=== PATIENT | male | born 1960 | race Caucasian/White ===

== ENCOUNTER 2020-09-16 09:56 | Emergency (ER) | payer BC, SELFPAY ==
--- NOTE | 2020-09-16 09:59 | ED.GENADULT ---
HPI - General Adult General Chief complaint: Upper Respiratory Infection Stated complaint: sinus infection Time Seen by Provider: 09/16/20 09:59 Source: patient Mode of arrival: ambulatory Limitations: no limitations History of Present Illness HPI narrative: 59-year-old male patient presents to the [facility] with complaints of cold symptoms for the past 4 days. Patient states he has had a lot of congestion and a runny nose of the right side of his nose. Patient states he has had a slight sore throat and coughing in the morning. Patient does present with a fever today but denies fevers at home. Patient states he has been feeling more fatigued and tired and has been sleeping a lot more lately. Denies having Covid within the last 3 months. Denies being around anybody with Covid that he is aware of denies getting the Covid vaccine. Patient denies getting the flu vaccine this year. Denies chest pain or shortness of breath. Related Data Home Medications Medication Instructions Recorded Confirmed No Home Medications 09/16/20 09/16/20 Allergies Allergy/AdvReac Type Severity Reaction Status Date / Time No Known Allergies Allergy Verified 04/12/15 11:06 Review of Systems Review of Systems: Narrative: CONSTITUTIONAL: Positive fever, denies chills, or sweats. EYES: Denies visual changes, redness, or discharge. ENT: Positive rhinorrhea, congestion, sore throat, denies otalgia. CARDIOVASCULAR: Denies chest pain, palpitations, or edema. RESPIRATORY: Positive mild nonproductive cough, denies dyspnea. GASTROINTESTINAL: Denies abdominal pain, nausea, vomiting, or diarrhea. GENITOURINARY: Denies dysuria or hematuria. SKIN: Denies rash or itching. MUSCULOSKELETAL: Denies back pain, joint pain, or myalgia. NEUROLOGIC: Denies headache, numbness, or weakness. Positive fatigue PSYCHIATRIC: Denies anxiety or depression. [facility] Surgical History Surgical History (Updated 09/16/20 @ 10:00 by YANET Foss) H/O skin graft H/O thyroidectomy History of appendectomy Family History Family History Father Family history of diabetes mellitus in first degree relative Family history of coronary artery disease Other Family history of lung cancer Social History Social History (Reviewed 03/31/21 @ 09:59 by BRITT Foss Smoking status: Never smoker Alcohol intake: current Gender identity (if verbalized by the patient): Male Comments At the time of my signature I agree with nursing past medical history, surgical, social, and family history. There is no relevant family history pertinent to the presenting complaint. Exam Narrative: Exam Narrative: GENERAL: Well-appearing, well-nourished, and in no acute distress. HEAD: Normocephalic, atraumatic. EYES: PERRLA and EOMI. ENT: Nares with erythema edema noted bilaterally, no rhinorrhea or epistaxis. Mucous membranes moist. Posterior pharynx with no erythema, tonsillar erythema, exudates or lesions present. Bilateral TMs are clear no erythema or foreign bodies to the canal. NECK: Supple. No lymphadenopathy CHEST: Clear to auscultation. No respiratory distress. Patient able talk in clear complete sentences. No obvious distress noted at this time. HEART: Regular rate and rhythm. No murmur heard. Normal peripheral pulses. ABDOMEN: Soft, nontender, nondistended, normal active bowel sounds. EXTREMITIES: Normal range of motion. No edema. SKIN: Warm, dry, no rash. NEURO: No focal deficits. Alert and oriented x3. Course Reevaluation(s) Reevaluation #1: Reevaluated patient notified him that his rapid Covid test today is positive. His strep test is negative. Discussed with patient that he will need to quarantine for 10 days from onset of symptoms so he definitely has at least 6 more days however the health department should be in contact with him to determine specifically when his quarantine will in. Discussed with him t
[2020-09-16 10:11] VITALS: BP 146/86; PULSE 66; RESP 18; TEMP 38.1; O2SAT 94
== END 2020-09-16 10:26 | disposition home or self-care (01) ==
PROVIDERS: Emergency Provider Nurse Practitioner Family; PCP Family Medicine
DX: U07.1 COVID-19 (principal)
CPT/HCPCS: 87081; 87426; 87880; 99213; C9803; G0463

== ENCOUNTER 2022-10-09 07:49 | Outpatient (CLI) | payer BC, SELFPAY ==
--- NOTE | 2022-10-10 17:53 | WPDSLEEPSTUD ---
Sleep Study Date of Study: 10/09/22 Ordering Provider: Bolivar Blanco MD Interpreting Physician: Sugar Owen DO Sleep Study Type: Split Polysomnogram Height: 1.88 m Weight: 113.398 kg Body Mass Index: 32.1 Neck Circumference (inches): 17 [place]: 4 Reason for Sleep Study Nocturnal hypoxemia, loud snoring, nocturnal gasping Sleep History The patient is a 61-year-old male with type 2 diabetes, hyperlipidemia, coronary artery disease, NSTEMI s/p stent x 2 , ischemic cardiomyopathy with EF 25-30%, excessive alcohol use, history of tobacco use and obesity that had a sleep study ordered by his primary care for evaluation of sleep apnea. The patient constantly awakens from sleep short of breath. He constantly awakens at night with heartburn, belching or cough. He constantly snores loudly enough that others complain. He constantly has trouble sleeping when he has a cold. He frequently wakes up gasping for air throughout the night. He frequently has breathing problems at night observed by himself or others. He denies sweating excessively at night. He denies having heart palpitations or irregular heartbeats during the night. He denies falling asleep during the day and denies falling asleep while driving. He denies sleep paralysis, cataplexy and hypnagogic / hypnopompic hallucinations. He denies having trouble at school or work due to sleepiness. He denies feeling afraidOf going to sleep. He denies having nightmares. He denies remembering his dreams. He denies having thoughts racing through his mind. He denies feeling sad, depressed or anxious. He denies having muscular tension. He denies noticing parts of his body jerk. He rarely kicks during the night. He denies having crawling and aching feelings in his legs and denies having leg pain during the night. He denies grinding his teeth during sleep and denies awakening with morning jaw pain. He denies being bothered by pain during the day and denies being awakened by pain during the night. He denies waking up feeling stiff in the morning. He denies waking up with sore or achy muscles. He denies waking up with pain in the neck, spine or other joints. He goes to bed at 9:00 p.m. on weekdays and 11:00 p.m. on the weekends. He is able to fall asleep in less than 5 minutes. He wakes up 2-3 times throughout the night for unknown reasons but is able to fall back asleep within a few minutes. He wakes up at 5:30 a.m. on weekdays and 8:00 a.m. on the weekends. He does not stay in bed after waking up in the morning. He currently lives with his . He does not consume any caffeinated beverages within 2 hours of bedtime. He does not engage in physical exercise before bedtime. He will watch television before falling asleep. He denies taking naps in the afternoon or the evening. He denies consuming any caffeinated beverages throughout the day. He drinks 5-6 alcoholic beverages per day. He quit smoking cigarettes 32 years ago. He denies recreational drug use. [facility] Past Medical History Medical History BMI 34.0-34.9,adult Dietary counseling and surveillance (07/12/18) Encounter for screening for lipoid disorders Encounter for screening for malignant neoplasm of prostate Hematuria, unspecified Mixed hyperlipidemia Rib pain on left side Surgical History Surgical History H/O skin graft H/O thyroidectomy History of appendectomy Family History Family History Father Family history of diabetes mellitus in first degree relative Family history of coronary artery disease Mother No problems noted. Sibling Alcohol abuse Other Family history of lung cancer Social History Social History Smoking status: Former
[2022-10-10 17:56] VITALS: BMI 32.1
== END 2022-10-10 06:03 | disposition home or self-care (01) ==
LOC: ANHCSM 07:52
PROVIDERS: PCP Family Medicine; Visit Provider Family Medicine
DX: G47.34 Idiopathic sleep related nonobstructive alveolar hypoventilation (principal); I42.9 Cardiomyopathy, unspecified; I21.4 Non-ST elevation (NSTEMI) myocardial infarction; G47.33 Obstructive sleep apnea (adult) (pediatric)
CPT/HCPCS: 95811

== ENCOUNTER 2024-12-24 11:16 | Outpatient (CLI) | payer BC, SELFPAY ==
--- OUTSIDE RECORDS SUMMARY | 2024-12-24 11:21 | XMS_ITS | Clinical Summary ---
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
--- OUTSIDE RECORDS SUMMARY | 2024-12-24 11:21 | XMS_ITS | Encounter Summary ---
Author Organization [facility] Address 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 NURSE Gender Identity Not on file Sexual Orientation Not on file documented as of this encounter Plan of Treatment Not on file documented as of this encounter Procedures Procedure Name Priority Date/Time Associated Diagnosis Comments CBC WITH DIFFERENTIAL Routine 07/16/2006 8:55 AM MDS NURSE CBC WITH DIFFERENTIAL Routine 07/16/2006 8:55 AM MDS NURSE COMPREHENSIVE METABOLIC PANEL Routine 07/16/2006 8:55 AM MDS NURSE ED HOLD Routine 07/15/2006 7:17 PM MDS NURSE documented in this encounter Results * (ABNORMAL) CBC WITH DIFFERENTIAL (07/16/2006 8:55 AM MDS NURSE) NEUTROPHILS 74(H) 45 - 70 % INTERFAC E SYSTEM LYMPHOCYTES 12(L) 16 - 45 % INTERFAC E SYSTEM MONOCYTES 11 3 - 13 % INTERFACE SYSTEM EOSINOPHILS 2 0 - 7 % INTERFAC E SYSTEM BASOPHILS 0 0 - 2 % INTERFACE SYSTEM NEUTROPHIL ABSOLUTE 5.97 1.90 - 7.00 K/uL INTERFACE SYSTEM LYMPHOCYTE ABSOLUTE 1.00 0.70 - 4.50 K/uL INTERFACE SYSTEM MONOCYTE ABSOLUTE 0.87 0.10 - 1.30 K/uL INTERFACE SYSTEM EOSINOPHIL ABSOLUTE 0.18 0.00 - 0.70 K/uL INTERFACE SYSTEM BASOPHILS ABSOLUTE 0.03 0.00 - 0.20 K/uL INTERFACE SYSTEM 07/16/2006 8:55 AM MDS NURSE us Luis Angel Fenton (Excluded Provider) Jordyn ROBLERO HEMATOLOGY ORDERABLES Edited Performing Organization Address [facility] de Phone Number INTERFACE SYSTEM Refer to clinic/hospital department * CBC WITH DIFFERENTIAL (07/16/2006 8:55 AM MDS NURSE) WBC 8.1 4.0 - 9.8 K/uL INTERFACE SYSTEM RBC 5.00 4.50 - 5.40 M/uL INTERFACE SYSTEM HEMOGLOBIN 14.7 13.6 - 16.5 g/dL INTERFACE SYSTEM HEMATOCRIT 42.7 40.0 - 48.0 % INTERFACE SYSTEM MCV 85.4 82.0 - 99.0 fL INTERFACE SYSTEM MCH 29.4 27.2 - 32.6 pg INTERFACE SYSTEM MCHC 34.4 31.5 - 35.5 % INTERFACE SYSTEM RDW 13.1 11.5 - 14.5 % INTERFACE SYSTEM RDW-STDEV 41.2 37.1 - 48.7 fL INTERFACE SYSTEM PLATELETS 258 140 - 350 K/uL INTERFACE SYSTEM MPV 9.7 9.3 - 12.4 fL INTERFACE SYSTEM 07/16/2006 8:55 AM MDS NURSE us Luis Angel Fenton (Excluded Provider) Jordyn ROBLERO HEMATOLOGY ORDERABLES Edited Performing Organization Address [facility] de Phone Number INTERFACE SYSTEM Refer to clinic/hospital department * (ABNORMAL) COMPREHENSIVE METABOLIC PANEL (07/16/2006 8:55 AM MDS NURSE) GLUCOSE 135(H) 65 - 99 mg/dL INTERFACE SYSTEM CREATININE 1.17 0.67 - 1.17 mg/dL INTERFACE SYSTEM CALCIUM 8.8 8.4 - 10.2 mg/dL INTERFACE SYSTEM ALKALINE PHOSPHATASE 68 40 - 129 U/L INTERFACE SYSTEM AST 26 12 - 38 U/L INTERFACE SYSTEM ALT 44(H) 0 - 41 U/L INTERFACE SYSTEM TOTAL PROTEIN 7.2 6.3 - 8.6 g/dL INTERFACE SYSTEM ALBUMIN 4.1 3.4 - 4.8 g/dL INTERFACE SYSTEM BILIRUBIN TOTAL 0.7 0.2 - 1.0 mg/dL INTERFACE SYSTEM BUN 15 6 - 20 mg/dL INTERFACE SYSTEM SODIUM 135 135 - 145 mmol/L INTERFACE SYSTEM POTASSIUM 3.6 3.5 - 4.9 mmol/L INTERFACE SYSTEM CHLORIDE 100 96 - 108 mmol/L INTERFACE SYSTEM CO2 25 22 - 30 mmol/L INTERFACE SYSTEM GFR, >60 >=60 mL/min/1. 7 sq meter INTERFACE SYSTEM GFR >60 >=60 mL/min/1. 7 sq meter INTERFACE SYSTEM Comment: Estimated GFR rate interpretative information for both Americans and non- Americans is available on the [facility] Intranet at: [email or web address] Select: Lab Policies and Procedures Select: Reference Ranges - GFR 07/16/2006 8:55 AM MDS NURSE us Luis Angel Fenton (Excluded Provider) Jordyn ROBLERO CHEMISTRY ORDERABLES Edited Performing Organization Address [facility] de Phone Number INTERFACE SYSTEM Refer to clinic/hospital department * ED HOLD (07/15/2006 7:17 PM MDS NURSE) SPECIMEN HOLD, BLOOD 7 days INTERFACE SYSTEM 07/15/2006 7:17 PM MDS NURSE Narrative INTERFACE SYSTEM - 07/15/2006 7:21 PM MDS NURSE Ordered by an unspecified provider. 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
--- OUTSIDE RECORDS SUMMARY | 2024-12-24 11:21 | XMS_ITS | Encounter Summary ---
Author Organization [facility] Address 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
--- OUTSIDE RECORDS SUMMARY | 2024-12-24 11:21 | XMS_ITS | Encounter Summary ---
Author Organization [facility] Address 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
--- OUTSIDE RECORDS SUMMARY | 2024-12-24 11:21 | XMS_ITS | Encounter Summary ---
Author Organization [facility] Address [address] [place] [address] Care Team Providers Care Molecular Biologist Name Role Phone Unavailable Primary Care Provider Unavailabl e Encounter Details Date Type Department Care Team (Late st Contact Info) Description 02/26/1999 Outpatient Historical [place] [id number] [address] Social History Tobacco Use Types Packs/Day Years Used Date Smoking Tobacco: Never Assessed Sex and Gender Information Value Date Recorded Sex Assigned at Not on file Legal Sex Male 5:20 AM TIMBER GRADER Gender Identity Not on file Sexual Orientation Not on file documented as of this encounter Plan of Treatment Not on file documented as of this encounter Visit Diagnoses Not on filedocumented in this encounter
--- OUTSIDE RECORDS SUMMARY | 2024-12-24 11:21 | XMS_ITS | Encounter Summary ---
Author Organization [facility] Address [address] [place] [address] Care Team Providers Care Marketing Graphics Specialist Name Role Phone Unavailable Primary Care Provider Unavailabl e Encounter Details Date Type Department Care Team (Late st Contact Info) Description 12/01/1998 Outpatient Historical [place] [id number] [address] Social History Tobacco Use Types Packs/Day Years Used Date Smoking Tobacco: Never Assessed Sex and Gender Information Value Date Recorded Sex Assigned at Not on file Legal Sex Male 5:20 AM FRUIT OR NUT FARMWORKER Gender Identity Not on file Sexual Orientation Not on file documented as of this encounter Plan of Treatment Not on file documented as of this encounter Visit Diagnoses Not on filedocumented in this encounter
--- OUTSIDE RECORDS SUMMARY | 2024-12-24 11:21 | XMS_ITS | Clinical Summary ---
Author Organization [facility] Address [address] [place] [address] Care Team Providers Care Voice Teacher Name Role Phone Bolivar Blanco MD Primary Care Provider [phone] Selwyn Henry MD Unavailable [phone] Source Comments [facility],non-owned Affiliates and Associated Physician Practices is amultiple site organization consisting of ambulatory clinics and hospital sitesin [place], [place], [place] and [place]. This disclosure is being madepursuant to the Care Everywhere program and may not contain all information available regarding this patient. Last updated 18.[facility] Allergies No known active allergies Medications * Be aware that medications may not be up to date on this document. Alwaysverify current medications with the patient. blood glucose (MIMI CONTOUR NEXT TEST) test stripIndication s:Diabetes Mellitus,monito r glucose levels Use 1 (one) strip as directed Reasons: Diabetes, monitor glucose levels 100 strip 08/10/2022 Active Jardiance 10 MG tabletIndicatio ns:Heart Failure,Type 2 Diabetes Mellitus Take 1 (one) tablet by mouth once daily Reasons: Cardiac Failure, Type 2 Diabetes 08/23/2022 Active Eliquis 5 MG tabletIndicatio ns:PAF (paroxysmal atrial fibrillation) (HCC) TAKE 1 TABLET BY MOUTH TWICE DAILY 180 tablet 3 03/28/2024 Active losartan (Cozaar) 50 MG tablet Take 0.5 (one-half) tablet by mouth once daily 45 tablet 3 09/21/2024 Active metoprolol succinate XL 24hr (Toprol XL) 25 MG tablet Take 1 (one) tablet by mouth once daily 90 tablet 3 09/20/2024 Active atorvastatin (Lipitor) 40 MG tablet TAKE 1 TABLET BY MOUTH AT BEDTIME 90 tablet 3 10/08/2024 Active Active Problems Patient Care Coordination No te Formatting of this note migh t be different from the original. 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 Shortness of breath 10/14/2022 Bradycardia 10/14/2022 Abnormal EKG 10/14/2022 Pacemaker 09/17/2022 Overview (03/28/2024): [facility] Coronary artery disease invo lving [place] [place] coronary artery of [place] heart without angina pectoris 08/31/2022 Type 2 diabetes mellitus wit hout complication, without long-term current use of insulin 08/31/2022 Dyslipidemia 08/31/2022 NSTEMI (non-ST elevated myocardial infarction) 0 08/07/2022 Chest pain, unspecified type 08/07/2022 History of placement of stent in LAD coronary ar k[place] 07/20/2022 Encounters Date Type Department Care Team Description 11/14/2024 11:30 AM CDT Clinical Support [facility] [address] [place] [address] Bradycardia ; Cardiac pacemaker in situ; CHB (complete heart block) (HCC) 10/06/2024 Refill [facility] [address] [place] [address] Anne Mora APRN-LINER INSERTER Refill Request from Last 3 Months Family History Medical History Relation Name Comments CAD (Coronary Artery Disease) Father Obesity Other Relation Name Status Comments Father Other Social History Tobacco Use Types Packs/Day Years Used Date Smoking Tobacco: Former Cigarettes 0.5 19 0 06/19/1978 - 06/19/1997 Passive Smoke Exposure: Past Smokeless Tobacco: Never Tobacco Cessation:Counseling Given: Not Answered Alcohol Use Standard Drinks/Week Comments Yes 20 (1 standard drink = 0.6 oz pu re alcohol) AUDIT-C Answer Date Recorded Q1: How often do you have a drink containing alc ohol? 2-3 times a week 08/08/2022 Q2: How many drinks containi ng alcohol do you have on a typical day when you are drinking? 1 or 2 08/08/2022 Q3: How often do you have si x or more drinks on one occasion? Less than monthly 08/08/2022 Overall Financial Resource Strain (CARDIA) Answe r Date Recorded How hard is it for you to pa y for the very basics like food, housing, medical care, and heating? Not hard at all 08/08/2022 [facility] - Occupational Stress Questionnaire Answer Date Recorded Do you feel stress - tense, restless, nervous, or anxious, or unable to sleep at night because your mind is troubled all the time - these days? Only a little 08/08/2022 Hunger Vital Sign Answer Date Recorded Within the past 12 months, y ou worried that your food would run out before you got the money to buy more. Never true 08/08/19 23 Within the past 12 months, t he food you bought just didn't last and you didn't have money to get more. Never true 08/08/2022 PRAPARE - Transportation Answer Date Re corded In the past 12 months, has l ack of transportation kept you from medical appointments or from getting medications? No 07/21 In the past 12 months, has l ack of transportation kept you from meetings, work, or from getting things needed for daily living? No 08/08/2022 Housing Stability Vital Sign Answer Francisco e Recorded In the last 12 months, was t here a time when you were not able to pay the mortgage or rent on time? No 08/08/2022 In the last 12 months, how many places have you lived? 1 08/08/2022 In the last 12 months, was t here a time when you did not have a steady place to sleep or slept in a assisted (including now)? No 08/08/2022 Sex and Gender Information Value Date Recorded Sex Assigned at Not on file Legal Sex Male 6:39 PM ACADEMIC AFFAIRS ASSISTANT Gender Identity Not on file Sexual Orientation Not on file Last Filed Vital Signs Vital Sign Reading Time Taken Comments Blood Pressure 138/84 07/26/2024 9:06 AM ACADEMIC AFFAIRS ASSISTANT Pulse 88 07/26/2024 9:06 AM ACADEMIC AFFAIRS ASSISTANT Temperature 37 C (98.6 F) 07/21/2023 8:43 AM ACADEMIC AFFAIRS ASSISTANT Respiratory Rate 20 10/15/2022 11:58 AM CDT Oxygen Saturation 94% 07/26/2024 9:06 AM ACADEMIC AFFAIRS ASSISTANT Inhaled Oxygen Concentration - - Weight 116.1 kg (256 lb) 07/26/2024 9:06 AM ACADEMIC AFFAIRS ASSISTANT Height 188 cm (6' 2) 07/26/2024 9:06 AM ACADEMIC AFFAIRS ASSISTANT Body Mass Index 32.87 07/26/2024 9:06 AM ACADEMIC AFFAIRS ASSISTANT Plan of Treatment Upcoming Encounters Date Type Department Care Team (Late st Contact Info) Description 02/13/2025 11:30 AM CDT Clinical Support [facility] [address] [place] [address] 05/15/2025 11:30 AM ACADEMIC AFFAIRS ASSISTANT Clinical Support [facility] [address] [place] [address] 08/01/2025 9:30 AM ACADEMIC AFFAIRS ASSISTANT Office Visit [facility] [address] [place] [address] Selwyn Henry MD [address] [place] [address] Health Maintenance Due Date Last Done Comments COLOGUARD (AGES 45-75) - COLON CA SCREENING 1961 COLON MONITORING 1961 COLONOSCOPY - COLON CA SCREENING 1961 CT COLONOGRAPHY - COLON CA SCREENING 1961 Colorectal Cancer Screening 1961 FIT - COLON CA SCREENING 1961 FLEX SIG - COLON CA SCREENING 1961 HIV SCREENING 1976 HEPATITIS C SCREENING 12/18/1979 DTAP/TDAP/TD VACCINES (1 - Tdap) 1980 PNEUMOCOCCAL VACCINE 50+ (1 of 2 - PCV) 1980 ZOSTER VACCINE (1 of 2) 12/23/2011 Respiratory Syncytial Virus (RSV) Vaccine Pt: or over 60 yrs (1 - Risk 60-74 years 1-dose series) 2021 DIABETES RETINOPATHY SCREENING 08/31/2022 DIABETES-FOOT EXAM WITH MONOFILAMENT 08/31/2022 DIABETES-HGB A1C 11/05/2022 08/08/2022 DIABETES-SERUM CREATININE 10/16/20232022, 10/14/2022, 08/10/2022, Additional history exists COVID-19 VACCINE ( season) 2024 DEPRESSION SCREENING 06/19/2024 DIABETES - URINE PROTEIN SCREENING 06/19/2024 INFLUENZA VACCINE (#1) 2025 HEPATITIS B VACCINE Aged Out No longe r eligible based on patient's age to complete this topic HIB VACCINE Aged Out No longer eligi ble based on patient's age to complete this topic HPV VACCINE Aged Out No longer eligi ble based on patient's age to complete this topic MENINGOCOCCAL (Group B) VACCINE SHARED DECISION-MAKING Aged Out No longer eligible based on patient's age to complete this topic MENINGOCOCCAL GROUPS A/C/Y/W VACCINE Aged Out No longer eligible based on patient's age to complete this topic Medical Devices Implanted Type Area Roller Device Identifier Shelf Expiration Date Model / Serial / Lot Sys Cor Stent Sng Xd Mr 2.75mm 24mm Dlv Implanted:Qty: 1 on 08/08/2022 by CarlSelwyn perdue MD at [facility] [employer] Aisha [id number] 08/23/2023 [id number] / NA / [id number] Ld Ingevity+ Pace 52cm Strd Ss Tasneem Rbr Implanted:Qty: 1 on 10/14/2022 by Demetris Phelan MD at [facility] [employer] [id number] 10/04/2024 [id number] / [id number] / NA Ld Ingevity+ Pace 59cm Strd Ss Tasneem Rbr Implanted:Qty: 1 on 10/14/2022 by Demetris Phelan MD at [facility] [employer] [id number] 10/03/2024 [id number] / [id number] / NA Pacemkr [employer] Nxt Pacesafe Easyview Implanted:Qty: 1 on 10/14/2022 by Demetris Phelan MD at [facility] [employer] [id number] 09/11/2024 [id number] / [id number] / NA Procedures Procedure Name Priority Date/Time Associated Diagnosis Comments PACEMAKER CLINIC CHECK Routine 11/15/2024 2:59 PM CDT Cardiac pacemaker in situ CHB (complete heart block) (HCC) Bradycardia BASIC METABOLIC PANEL (CALCIUM TOTAL) STAT 10/15/2022 7:36 AM CDT Intermittent complete heart block HEMOGLOBIN A1C Routine 08/08/2022 1:31 AM ACADEMIC AFFAIRS ASSISTANT from Last 3 Months or Most Recently Relevant to Health Maintenance Results * (ABNORMAL) BASIC METABOLIC PANEL (CALCIUM TOTAL) (10/15/2022 7:36 AM CDT) [facility] Glucose 101 70 - 105 mg/dL 10/15/2022 7:55 AM CDT [facility] Sodium 137 136 - 145 mmol/L 10/15/2022 7:55 AM CDT [facility] Potassium 4.3 3.5 - 5.1 mmol/L 10/15/2022 7:55 AM CDT [facility] Chloride 106 98 - 107 mmol/L 10/15/2022 7:55 AM [facility] CO2 19(L) 23 - 31 mmol/L 10/15/2022 7:55 AM T [facility] Calcium 8.9 8.4 - 10.4 mg/dL 10/15/2022 7:55 AM [facility] Anion Gap 12 8 - 18 mmol/L 10/15/2022 7:55 AM T [facility] BUN 15 8.4 - 25.7 mg/dL 10/15/2022 7:55 AM [facility] Creatinine 1.02 0.72 - 1.25 mg/dL 10/15/2022 7:55 AM [facility] eGFR by CKD-EPI 84(L) >=90 mL/min/1.7 3 m2 10/15/2022 7:55 AM [facility] Blood BLOOD SPECIMEN / Unknown Lab Venipuncture / Unknown 10/15/2022 7:36 AM CDT 10/15/2022 7:38 AM T us Kristi Robin PA-C LAB - CHEMISTRY ORDERABL ES Final Result [facility] [address] [place], [place] [id number] * (ABNORMAL) HEMOGLOBIN A1C (08/08/2022 1:31 AM [facility]) Hemoglobin A1c 9.9(H) <5.7 % 08/08/2022 1:56 AM [facility] Estimated Average Glucose 237 mg/dL 08/08/2022 1:56 AM [facility] Whole Blood BLOOD SPECIMEN / Unknown Lab Venipuncture / Unknown 08/08/2022 1:31 AM ACADEMIC AFFAIRS ASSISTANT 08/08/2022 1:41 AM ACADEMIC AFFAIRS ASSISTANT Narrative [facility] - 08/08/2022 1:56 AM [facility] HbA1c Interpretation: Normal: < 5.7% Pre-diabetes: 5.7-6.4% Diabetes: Equal to or greater than 6.5% Test results diagnostic of diabetes should be repeated for confirmation. Treatment target values recommended by ADA and other clinical organizations should be used to evaluate metabolic control in patients. This test should not replace glucose testing for patients with Type 1 diabetes, pediatric patients, or women. Falsely low HbA1c results may be observed in patients with clinical conditions that shorten erythrocyte life span or decrease mean erythrocyte age such as the presence of unstable hemoglobin variants, elevated hemoglobin F level or other causes of hemolytic anemia. HbA1c may not accurately reflect glycemic control when clinical conditions that affect erythrocyte survival are present. Severe Iron deficiency anemia may yield falsely high results. Hemoglobin A1c assay should not be used to diagnose or monitor diabetes in patients with malignancy, recent blood transfusion, chronic kidney or liver disease. This method may yield falsely low results when hemoglobin (HbF) exceeds 5% in the specimen. The [employer] Techn[employer] assay for the measurement of HbA1c is a National Glycohemoglobin Standardization Program (NGSP) certified method. Emiliana Manjarrez PA-C LAB - CHEMISTRY ORDERA BLES Final Result [facility] [address] [place], [place] [id number] from Last 3 Months or Most Recently Relevant to Health Maintenance Insurance [facility] Advance Directives * Full Code (Latest Code Status on File) Date Activated Date Inactivated Comments 10/14/2022 5:26 PM 10/15/2022 2:38 PM * Full Code Date Activated Date Inactivated Comments 10/14/2022 5:26 PM 10/14/2022 5:26 PM * Full Code Date Activated Date Inactivated Comments 08/07/2022 10:23 PM 08/12/2022 5:50 PM Care Teams Voice Teacher Relationship Specialty Start Date End Date Bolivar Blanco MD [address] [place] [id number] PCP - General Family Medicine 08/07/22 Selwyn Henry MD [address] [place] [id number] Golf Ball Cover Treater Cardiology 08/13/22
--- OUTSIDE RECORDS SUMMARY | 2024-12-24 11:21 | XMS_ITS | Encounter Summary ---
Author Organization [facility] Address [address] [place] [address] Care Team Providers Care Med Specialist Name Role Phone Unavailable Primary Care Provider Unavailabl e Encounter Details Date Type Department Care Team (Late st Contact Info) Description 07/16/2006 Outpatient Historical [facility] Support Serv. (Adt Cardiology-[facility]) [address] [place] [id number] Savage Cano MD NO ADDRESS ON FILE Social History Tobacco Use Types Packs/Day Years Used Date Smoking Tobacco: Never Assessed Sex and Gender Information Value Date Recorded Sex Assigned at Not on file Legal Sex Male 5:20 AM LICENSED EMBALMER Gender Identity Not on file Sexual Orientation Not on file documented as of this encounter Plan of Treatment Not on file documented as of this encounter Visit Diagnoses Not on filedocumented in this encounter
--- OUTSIDE RECORDS SUMMARY | 2024-12-24 11:21 | XMS_ITS | Encounter Summary ---
Author Organization [employer] Address [address] [place] [address] Care Team Providers Care Expanded Duty Dental Assistant Name Role Phone Unavailable Primary Care Provider Unavailabl e Encounter Details Date Type Department Care Team (Late st Contact Info) Description 07/17/2006 Outpatient Historical [facility] Support Serv. (Adt Cardiology-[facility]) [address] 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
[2024-12-24 11:42] LABS: Hematocrit 47.7 % (42.0-52.0); Hemoglobin 16.2 g/dL (14.0-18.0); Mean Corpuscular HGB Conc 34.0 g/dl (32-36); Mean Corpuscular Hemoglobin 33.3 pg (26-34); Mean Corpuscular Volume 97.9 fl (80-100); Platelet Count Result 172 k/mm3 (150-375); Red Blood Count 4.87 M/mm3 (4.6-6.20); White Blood Count 5.9 K/mm3 (4.5-10.0)
[2024-12-24 11:43] LABS: Add Urine Microscopic? NO; Appearance Urine Clear (Clear); Glucose Urine UA 3+ mg/dL (Negative); Leukocyte Esterase Ur Negative LEU/UL (Negative); Nitrate Urine Negative (Negative); Specific Grav Ur 1.029 (1.001-1.035)
[2024-12-24 12:00] LABS: Alanine Aminotransferase 63 U/L (6-50); Albumin Level 4.6 g/dL (3.5-5.1); Alkaline Phosphatase 61 U/L (38-126); Anion Gap 14 mmol/L (4-12); Aspartate Amino Transferase 54 U/L (17-59); Bilirubin,Total 1.8 mg/dL (0.2-1.3); Blood Urea Nitrogen 11 mg/dL (9-20); Calcium 9.3 mg/dL (8.4-10.2); Carbon Dioxide 20 mmol/L (22-30); Chloride 104 mmol/L (98-107); Cholesterol 177 mg/dL (0-200); Estimated Glomerular Filt Rate > 60; Glucose 131 mg/dL (65-110); HDL Direct 80 mg/dL; Potassium 4.2 mmol/L (3.4-5.0); Sodium 138 mmol/L (137-145); Total Protein 8.2 g/dL (6.3-8.2); Triglycerides 128 mg/dL (<150)
[2024-12-24 12:18] LABS: Hemoglobin A1C 6.2 % (<5.7)
[2024-12-24 12:20] LABS: MALB Creatinine Ratio 6.2 mg/g (0-30)
[2024-12-24 12:30] LABS: Prostate Specific Antigen 2.4 ng/mL (< OR = 4.0); Thyroid Stimulating Hormone 5.110 uIU/mL (0.465-4.680)
[2024-12-25 10:08] LABS: GGT 65 IU/L (0-65)
== END 2024-12-24 11:17 | disposition home or self-care (01) ==
PROVIDERS: PCP Family Medicine; Visit Provider Family Medicine
DX: R31.29 Other microscopic hematuria (principal); Z13.220 Encounter for screening for lipoid disorders; E78.5 Hyperlipidemia, unspecified; E11.9 Type 2 diabetes mellitus without complications; F10.10 Alcohol abuse, uncomplicated; I49.9 Cardiac arrhythmia, unspecified; Z12.5 Encounter for screening for malignant neoplasm of prostate
CPT/HCPCS: 36415; 80048; 80061; 80076; 81003; 82043; 82977; 83036; 84153; 84443; 85027; G0103